=== PATIENT | male | born 1990 | race Two or more races ===

== ENCOUNTER 2023-09-30 14:28 | Inpatient (IN) | payer OTHER ==
[~2023-09-30] VITALS: Ht 188 cm; Wt 113.4 kg
[2023-09-30] MEDS ORDERED: XARELTO20 MG (14:53)
[2023-09-30 17:17] LABS: HEMATOCRIT 41.4 % (39.0-48.0); HEMOGLOBIN 13.8 g/dL (13-16.00); MEAN CELL VOLUME 86.2 fL (80.0-100.00); MEAN CORPUSCULAR HEMOGLOBIN 28.7 pg (27.00-32.0); MEAN CORPUSCULAR HGB CONC 33.3 g/dl (32.0-36.0); PLATELET COUNT 240 K/uL (150-450); RED CELL DISTRIBUTION WIDTH 13.6 % (11.5-14.5)
[2023-09-30 17:49] LABS: CALCIUM 9.2 mg/dL (8.5-10.1); CREATININE SERUM 1.27 mg/dL (0.70-1.30); GFR 64.53; POTASSIUM 3.64 mEq/L (3.5-5.1)
[2023-09-30 17:49] LABS: PH,URINE 5.5 (5.0-8.0); URINE APPEARANCE Clear; URINE BILIRRUBIN Negative (NEGATIVE); URINE BLOOD Trace; URINE COLOR Yellow; URINE GLUCOSE Negative (NEGATIVE); URINE LEUKOCYTE Negative; URINE NITRATE Negative; URINE PROTEIN Negative (NEGATIVE); URINE RBC 7.1 uL (0.0-20.8); URINE UROBILINOGEN 0.2 E.U./dl
[2023-09-30 17:53] LABS: URINE BACTERIA 0 uL (0.0-1933); URINE EPITHELIAL CELLS 0.1 uL (0.0-38.8)
[2023-09-30 17:56] LABS: INR 1.36
[2023-09-30 18:38] LABS: PARTIAL THROMBOPLASTIN TIME 40.7 SECONDS (22.0-34.0)
[2023-10-01 11:08] LABS: INR 1.03; PARTIAL THROMBOPLASTIN TIME 30.8 SECONDS (22.0-34.0); PROTHROMBIN TIME 10.8 SECONDS (9.0-11.5)
== END 2023-10-02 15:24 | disposition home or self-care (01) | DRG 603 ==
LOC: ER 14:28 → MEDJ 23:36
PROVIDERS: General Practice; Nurse Practitioner Family; ADMIT Specialist; ATTEND Specialist
PROC: B54 Imaging, Veins, Ultrasonography (ICD-10-PCS; principal; 2023-09-30)
DX: L03.115 Cellulitis of right lower limb (principal); I82.411 Acute embolism and thrombosis of right femoral vein; I82.431 Acute embolism and thrombosis of right popliteal vein; I87.2 Venous insufficiency (chronic) (peripheral)